=== PATIENT | male | born 1995 | race Caucasian/White ===

== ENCOUNTER 2017-02-04 01:15 | Emergency (ER) | payer OTHER ==
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
[2017-02-04 01:23] VITALS: TEMP 97.7; O2SAT 95
[2017-02-04] MEDS ORDERED: CEPHALEXIN 500 MG CAP PO ONE (01:34)
[2017-02-04 04:29] VITALS: BP 130/86; PULSE 93; RESP 16
== END 2017-02-04 04:29 | disposition home or self-care (01) ==
PROC: 0HQDXZZ Repair Right Lower Arm Skin, External Approach (ICD-10-PCS; principal; 2017-02-04)
DX: S41.121A Laceration with foreign body of right upper arm, initial encounter (principal); S40.851A Superficial foreign body of right upper arm, initial encounter; V00.138A Other skateboard accident, initial encounter; Y92.410 Unspecified street and highway as the place of occurrence of the external cause; Y99.8 Other external cause status; Y93.51 Activity, roller skating (inline) and skateboarding; F10.920 Alcohol use, unspecified with intoxication, uncomplicated

== ENCOUNTER 2018-02-03 22:51 | Emergency (ER) | payer OTHER ==
[2018-02-03 22:56] VITALS: BP 140/94
--- NOTE | 2018-02-03 23:07 | EDPHY ---
H & P Stated Complaint: chin lac, fell on stairs Source: Patient Exam Limitations: No limitations - Personal History Current Tetanus Diphtheria and Acellular Pertussis (TDAP): Yes Tetanus Vaccine Date: 2014 - Medical/Surgical History Hx Asthma: No Hx Chronic Respiratory Disease: No Hx Diabetes: No Hx Cardiac Disease: No Hx Renal Disease: No Hx Cirrhosis: No Hx Alcoholism: No Hx HIV/AIDS: No Hx Splenectomy or Spleen Trauma: No Other PMH: wisdom teeth - Social History Smoking Status: Never smoked Time Seen by Provider: 02/03/18 23:03 HPI/ROS: HPI: This is a 22-year-old male who presents with Chief Complaint: chin lac, fell on stairs Location: Chin and lip Quality: laceration Duration: Prior to arrival Signs and Symptoms: No difficulty talking, no difficulty opening jaw, no tongue trauma, + bleeding, no radiation, no numbness, no weakness, no tingling, no incontinence, no decreased range of motion, no swelling, no pain, no fever Timing: Acute Severity: [id number] Context: Patient reports he was running up the wooden stairs and accidentally slipped falling forward. He reports that he hit his chin on the stair. His tooth went through his lower lip and immediately started to bleed. He admits to drinking quite a bit of alcohol this evening and denies any pain currently. He drove himself to the emergency room. Reports tetanus is current. Denies LOC/ head injury/neck pain/dizziness/nausea/vomiting/amnesia. Denies any dental loosening for pain. Modifying Factors: None Comment: ROS: see HPI Constitutional: No fever, no chills, no weight loss Eyes: No blurred vision Respiratory: No shortness of breath, no cough Cardiovascular: No chest pain Gastrointestinal: No nausea, no vomiting no diarrhea Genitourinary: No dysuria Extremities: No myalgias Neurologic: No weakness, no numbness Skin: No rashes Hematologic: No bruising, no bleeding MEDICAL/SURGICAL/SOCIAL HISTORY: Medical history: Generally healthy. Does not take any regular medications. Surgical history: [place] teeth removal Social history: Student at [employer], nonsmoker CONSTITUTIONAL: Intoxicated but polite and cooperative young adult white male, awake and alert, no obvious distress HEENT: Atraumatic and normocephalic, PERRL, EOMI. no globe entrapment, no raccoon eyes. no Quinones signs.Tympanic membranes clear. No tympanic membrane rupture. Nares patent; no septal hematoma. Oropharynx clear, lower lip shows 2 cm linear through and through laceration in the middle of his lip sparing the vermilion border-no active bleeding. no exudate and moist pink mucosa. No malocclusion. no dental trauma. Airway patent. No lymphadenopathy. NECK: supple, no midline tenderness, flexion 45 degrees, extension 45 degrees, right and left lateral flexion 45 degrees. No meningismus. Cardiovascular: Normal S1/S2, regular rate, regular rhythm, without murmur rub or gallop. PULMONARY/CHEST: Symmetrical and nontender. no crepitus. Clear to auscultation bilaterally. Good air movement. No accessory muscle usage. ABDOMEN: Soft, nondistended, nontender, no ecchymosis, no rebound, no guarding , no peritoneal signs, no masses or organomegaly. No CVAT. EXTREMITIES: 2/2 pulses, no deformities, no clubbing, no cyanosis or edema. NEUROLOGICAL: no focal neuro deficits. GCS 15. SKIN: Warm and dry, no erythema. no rash. Good capillary refill. (Maged,Roseann) Constitutional: Initial Vital Signs Temperature (C) 36.5 C 02/03/18 22:54 Heart Rate 118 H 02/03/18 22:54 Respiratory Rate 18 02/03/18 22:54 Blood Pressure 140/94 H 02/03/18 22:54 O2 Sat (%) 95 02/03/18 22:54 O2 Delivery Mode Room Air Allergies/Adverse Reactions: No Known Allergies Allergy (Unverified 02/03/18 22:56) Home Medications: Medication Instructions Recorded Cephalexin [Keflex (*)] 500 mg PO TID #21 cap 02/04/17 Hydrocodone/APAP 5/325 [[place] 1 - 2 tab PO Q4H PRN #10 tab 02/04/17 5/325 (*)] Medical Decision Making Procedures: Procedure: Laceration repair. Verbal consent was obtained from the patient. The 2 cm, deep, linear, through and through laceration on the middle of the lower lip was anesthetized in the usual fashion using 8 mL of 1% lidocaine with epinephrine. The wound was irrigated, draped and explored to its base with a gloved finger. There were no deep structures involved. No tendon injury was identified. The wound was repaired with a 2 layer closure; #4, 4-0 Vicryl used on the inner buccal mucosa and #5, 5-0 Prolene in a simple interrupted pattern on the subcutaneous layer. Good hemostasis was achieved and patient tolerated procedure well. The procedure was performed by myself. (Roseann Lynne) ED Course/Re-evaluation: Vital signs reviewed and show mild tachycardia likely due to alcohol use. Local anesthetic applied and irrigated copiously with 50/50 normal saline and hydrogen peroxide mixture. Laceration repaired with 2 layer closure. Written and verbal wound care instructions provided. No signs of neurovascular compromise/tenting of skin/compartment syndrome/ extremities and joints examined above and below area of concern and are neurovascularly intact/dental trauma/concussion/tongue laceration. This patient was seen under the supervision of my secondary supervising physician. I evaluated care for this patient independently. Discussed this patient with Dr. Pratt. (Roseann Lynne) PHYSICIAN DOCUMENTATION: The patient was evaluated and managed by the Physician Dye Jig Operator. My co- signature indicates that I have reviewed this chart and I agree with the findings and plan of care as documented. I am the secondary supervising physician. (Edwige Pratt) Differential Diagnosis: Differential diagnosis includes but is not limited to lip laceration, dental trauma, vermilion border laceration, tongue laceration, concussion, mandible fracture, TMJ sprain. (Roseann Lynne) Departure - Departure Disposition: Home, Routine, Self-Care Clinical Impression: Laceration of lower lip Condition: Good Instructions: Care For Your Stitches (ED), Care For Your Absorbable Stitches ( ED), Facial Laceration (ED) Additional Instructions: If at any time you have dental pain or dental loosening, follow up with a dentist. Swish and spit with dilute hydrogen peroxide. Take Tylenol 650 mg every 4 hr and/or ibuprofen 600 mg every 8 hr as needed for pain. This sutures on the inside of your mouth are absorbable and do not need to be removed. This sutures on the outside of your mouth need to be removed in 5-7 days. Return to the ER immediately if you experience redness, red streaks, have fevers /chills, flu like symptoms, limited range of motion, or any other symptoms that concern you. Referrals: [facility],. [Clinic] - As per Instructions
== END 2018-02-03 23:27 | disposition home or self-care (01) ==
PROC: 0CQ1XZZ Repair Lower Lip, External Approach (ICD-10-PCS; principal; 2018-02-03)
DX: S01.511A Laceration without foreign body of lip, initial encounter (principal); W10.9XXA Fall (on) (from) unspecified stairs and steps, initial encounter